=== PATIENT | female | born 1985 | race Caucasian/White ===

== ENCOUNTER 2016-10-26 09:37 | Emergency (ER) | payer MEDICAID, MEDICARE, OTHER ==
[~2016-10-26] VITALS: Ht 162.6 cm; Wt 154.6 kg
[~2016-10-26 09:37] MED LIST: CIPR500S3 PO; HYDR-3479 PO; RIFA300C4 PO; [UNRECOGNIZED DRUG - CODE] TP
[2016-10-26 09:51] VITALS: BP 129/73; PULSE 65; RESP 15; O2SAT 98
--- NOTE | 2016-10-26 09:58 | ED.REPORT ---
HPI-Chest Pain Under 40 Date of Service Oct 26, 2016 ED Provider: Eric Johnson MD Patient is a 31 year old female with a hx of anxiety who presents to the ED complaining of upper chest pain onset this morning since she awoke. She reports similar symptoms intermittently over the last month. She describes the pain as burning, tight, and pressure that is non-exertional. Yesterday she experienced some arm numbness and SOB. She denies diaphoresis, nausea, vomiting, or any other symptoms. She believes her symptoms are due to anxiety related to stress related to work. She has a Mirena IUD for control and does not have periods. She does not take any daily medications. Nursing Notes Stated Complaint: CHEST PAIN Chief Complaint: Chest Pain Nursing Notes Reviewed: Yes Allergies: Coded Allergies: Penicillins (Verified Allergy, Severe, 10/26/16) Sulfa (Sulfonamide Antibiotics) (Verified Allergy, Severe, 10/26/16) amoxicillin (Verified Allergy, Unknown, 11/26/13) Uncoded Allergies: SULFA (Allergy, Unknown, 11/26/13) Scheduled Ciprofloxacin (Ciprofloxacin) 500 Mg/5 Ml Soraya.mc.rec 500 MG PO BID Pantoprazole DR (Protonix) 40 Mg Tablet 40 MG PO DAILY Rifampin (Rifampin) 300 Mg Capsule 300 MG PO BID Scheduled PRN Hydrocodone/Acetaminophen (Vicodin 5-300 mg Tablet) 1 Each Tablet 1 EACH PO Q4 PRN PRN For Pain General Time Seen by MD: 09:56 Chief Complaint Chest pain Hx Obtained From: Patient Arrived By: Walk-in Sudden in Onset?: Yes Onset Occurred: 3 days ago Symptom Duration: Since onset Similar Sx Previous: Yes Risk Factors )( CAD Risk Stratification No Diabetes mellitus, No Hyperlipidemia, No Hypertension, No Smoking Risk factors reviewed )( PE Risk Stratification No , No Previous DVT, No Previous PE, No Surgery Last 60 Days Risk factors reviewed Past Medical History Past Medical History Denies HTN, DM, and hyperlipidemia since gastric bypass surgery Reports: Asthma Past Surgical History Gastric bypass 2014 at [facility] Family History Father of [place] at 39 Reports: Coronary artery disease, Diabetes mellitus Reports: Cancer Smoking History Former Smoker Social History Alcohol Use: Denies alcohol use Drug Use: Denies drug use Other Social History: Good social support Ambulatory Status Independent Review of Systems Respiratory: Reports: Shortness of breath Cardiovascular: Reports: Chest pain GI: Denies: Nausea, Vomiting Skin: Denies Diaphoresis Neurologic: Reports: Numbness Complete sys rev & neg: except as marked. Physical Exam Initial Vital Signs Vital Signs (First) Date Time Temp Pulse Resp B/P Pulse Ox O2 Delivery O2 Flow Rate FiO2 10/26/16 09:51 36.7 65 15 129/73 98 Room Air Initial VS: Reviewed, Vital signs normal Head / Eyes: Atraumatic, Normocephalic Neck: Full range of motion Skin: Warm, Dry Neurologic: Alert, Oriented, Nonfocal Psychiatric: Mood/affect normal, Behavior normal, Normal thought content General/Constitutional: Awake, Alert, No acute distress Appearance / Presentation: Positive: Obese, morbidly Respiratory / Chest: Breath sounds NL, Breath sounds = bilat, No respiratory distress Cardiovascular: Heart rate NL, Regular rhythm, Heart sounds NL, No gallop, No murmurs, No rubs Abdomen: Atraumatic, Soft, Non-tender, BS normoactive Interpretation & Diagnostics Lab Results Interpretation Result Diagram: 10/26/16 1100 10/26/16 1100 Test 10/26/16 11:00 10/26/16 13:25 White Blood Count 6.8th/mm3 (3.8-10.1) Red Blood Count 4.52mil/mm3 (3.90-5.20) Hemoglobin 13.9g/dL (12.0-15.6) Hematocrit 41.3% (35.0-46.0) Mean Corpuscular Volume 91.4fL (81-100) Mean Corpuscular Hemoglobin 30.8pg (27.0-35.0) Mean Corpuscular Hemoglobin Concent 33.7% (32.0-37.0) Red Cell Distribution Width 13.8% (12.3-15.4) Platelet Count 180bil/L (150-400) Neutrophils (%) (Auto) 61.9% (40-74) Lymphocytes (%) (Auto) 29.5% (14-46) Monocytes (%) (Auto) 7.0% (4-12) Eosinophils (%) (Auto) 0.9% (0-5) Basophils (%) (Auto) 0.4% (0-3) D-Dimer < 0.50mg/L FEU (<0.50) Sodium Level 140mEq/L (134-144) Potassium Level 4.0mEq/L (3.5-5.2) Chloride Level 105mEq/L (97-108) Carbon Dioxide Level 24mmol/L (18-29) Blood Urea Nitrogen 10mg/dL (6-20) Creatinine 0.62mg/dL (0.57-1.00) Estimat Glomerular Filtration Rate 160mL/min (>59) Glucose Level 100mg/dL (60-99) Calcium Level 8.6mg/dL (8.5-10.1) Magnesium Level 2.1mg/dL (1.6-2.6) Total Bilirubin 0.4mg/dL (0.0-1.2) Aspartate Amino Transf (AST/SGOT) 14U/L (0-50) Alanine Aminotransferase (ALT/SGPT) 12U/L (0-32) Alkaline Phosphatase 80U/L (25-150) Total Protein 6.5g/dL (6.4-8.4) Albumin 3.5g/dL (3.4-5.0) Troponin T < 0.010ug/L (0.0-0.011) ECG Interpretation ECG Interpretation: Sinus arrhythmia rate 54 Prolonged IL interval Time: 10:36 Interpreted by: ED physician ECG Interpretation: Slow sinus arrhythmia with a rate of 48 Low voltage precordial leads Time: 12:04 Interpreted by: ED physician X-Ray Chest Interpretation Chest Xray Interpretation: IMPRESSION: No acute cardiopulmonary abnormality or source of pain seen. Dictated by: Thony Serrano M.D. on 10/26/2016 at 11:11 Approved by: Thony Serrano M.D. on 10/26/2016 at 11:11 View: Portable, 1 view Interpretation / Wet Read by: Interpret - Radiologist Re-Eval/Medical Decision Re-Evaluation/Progress #1: Time of Eval: 13:19 Re-Evaluation/Progress Note: Rechecked patient who is feeling better. Discussed lab results and plan for repeat trop. Patient understands and agrees with plan. All questions addressed at this time. Re-Evaluation/Progress #2: Time of Eval: 14:16 Re-Evaluation/Progress Note: Rechecked patient who is feeling better with only slight chest tightness. Discussed plan for discharge. Patient understands and agrees with plan. All questions addressed at this time. Counseled Regarding: Diagnosis, Lab results, Need for follow-up, When/why to return to ED Discharge & Departure Primary Impression: Non-cardiac chest pain Additional Impression: Situational stress Disposition: Home Discharge Condition All VS Reviewed: Yes Condition: Improved Patient Instructions: Esophageal Spasm (ED) Additional Instructions: Emergency Department evaluation included interview, examination labs ECG observation in emergency department chest x-ray. No serious cause for chest pain is identified, given prolonged pain with no changes on ECG and no elevation in cardiac enzymes, a heart problem as cause for her pain is unlikely. Screening test for pulmonary embolus was negative. No pneumonia was seen on chest x-ray. Treatment with acid secretion suppression seems helpful. Take Protonix 40 mg twice daily for 1 week and then 40 mg daily. Best to take this 30 minutes before a meal. Follow-up with your bariatric surgeon for recheck and consideration of possible esophageal reflux. Follow-up with primary care soon as well. Return emergency Department for increasing pain, difficulty breathing, black stool or vomiting blood. Referrals: Cynthia East PA-C (PCP) Scribe Attestation Portions of this note were transcribed by Tate Peterson. I, Dr. Johnson personally performed the history, physical exam and medical decision-making; I reviewed and confirmed the accuracy of the information in the transcribed note. Signed by: Tate Peterson 10/26/2016, [id number] copies to: Cynthia East PA-C, Donald L MD Oct 26, 2016 09:58 TATE PETERSON Oct 26, 2016 10:23
[2016-10-26] MEDS ORDERED: LidocaineVisc 2%:Antacid 1:1 10 mL Syringe PO ONE (10:25)
[2016-10-26 11:09] LABS: BASOPHILS % (AUTO) 0.4 % (0-3); EOSINOPHILS % (AUTO) 0.9 % (0-5); Mean Corpuscular Hemoglobin 30.8 pg (27.0-35.0); Mean Corpuscular Volume 91.4 fL (81-100); NEUTROPHILS % (AUTO) 61.9 % (40-74); Platelet Count 180 bil/L (150-400)
--- NOTE | 2016-10-26 11:13 | DRSVH ---
PROCEDURE: X-RAY CHEST ONE VIEW, PORTABLE ([id number]) INDICATIONS: chest pain TECHNIQUE: One view of the chest was acquired. COMPARISON: 01/05/2010 FINDINGS: Surgical changes and devices: None. Lungs and pleura: No pleural effusions or pneumothorax. Lungs are clear. Mediastinum: Mediastinal contours appear normal. Heart size is normal. Bones and chest wall: No suspicious bony lesions. Overlying soft tissues appear unremarkable. IMPRESSION: No acute cardiopulmonary abnormality or source of pain seen. Dictated by: Thony Serrano M.D. on 10/26/2016 at 11:11 Approved by: Thony Serrano M.D. on 10/26/2016 at 11:11
[2016-10-26 11:32] LABS: TROPONIN T 0.01 ug/L (0.0-0.011)
[2016-10-26] MEDS ORDERED: Pantoprazole 40 mg ER24 Tablet PO ONE (11:40)
[2016-10-26 11:43] LABS: Magnesium 2.1 mg/dL (1.6-2.6)
[2016-10-26 11:45] VITALS: BP 108/50; PULSE 44; RESP 19; O2SAT 98
[2016-10-26 14:15] VITALS: BP 112/72; PULSE 55; RESP 16; O2SAT 96
[2016-10-26] MEDS ORDERED: PANT40TA2 PO (14:23)
[2016-10-26 14:44] VITALS: BP 112/72; PULSE 55; RESP 16; O2SAT 96
== END 2016-10-26 14:45 | disposition home or self-care (01) ==
LOC: SED 09:37
DX: R07.89 Other chest pain (principal); F43.0 Acute stress reaction; Z87.891 Personal history of nicotine dependence; Z88.0 Allergy status to penicillin; Z88.2 Allergy status to sulfonamides